=== PATIENT | female | born 1990 | race Caucasian/White ===

== ENCOUNTER → 2018-01-17 | Outpatient (CLI) | payer BC | LOC: WSo 14:29 | PROVIDERS: ATTEND Obstetrics & Gynecology | DX: Z31.82 Encounter for Rh incompatibility status (principal) | CPT/HCPCS: 96372 ==

== ENCOUNTER → 2018-03-20 | Outpatient (CLI) | payer BC ==
[2018-03-20 16:34] LABS: URINE CREATININE FOR RATIO 50 MG/DL (30-125); URINE PROTEIN FOR RATIO ONLY < 6 MG/DL (6-12)
== END ==
LOC: LABNPT 16:09
PROVIDERS: ATTEND Obstetrics & Gynecology
DX: O28.8 Other abnormal findings on antenatal screening of mother (principal)
CPT/HCPCS: 82570; 84156

== ENCOUNTER → 2018-03-25 | Outpatient (CLI) | payer BC ==
[2018-03-25 14:35] LABS: URINE CREATININE FOR RATIO 42 MG/DL (30-125); URINE PROTEIN FOR RATIO ONLY < 6 MG/DL (6-12)
== END ==
LOC: LABNPT 14:15
PROVIDERS: ATTEND Obstetrics & Gynecology
DX: O28.8 Other abnormal findings on antenatal screening of mother (principal)
CPT/HCPCS: 82570; 84156

== ENCOUNTER 2018-03-28 07:00 | Inpatient (IN) | payer BC, OTHER ==
[2018-03-28] VITALS (52 sets, daily range): BP systolic 110–146; BP diastolic 63–93
[~2018-03-28] VITALS: Ht 165.1 cm; Wt 79.8 kg
[2018-03-28] MEDS ORDERED: AMPICILLIN FOR IV USE 2,000 MG in NS (IVPB) 50 ML IV SCH (07:18)
[2018-03-28] MEDS: D5 LR IV SOLUTION 1,000 ML IV SCH ×2 (07:52→16:10)
--- NOTE | 2018-03-28 07:54 | History & Physical ---
History and Physical Date Seen by Provider: Mar 28, 2018 Time Seen by Provider: 07:52 This patient is a 27-year-old G1 white female with an EDC of 10 [phone] placing her now at 38-2/7 weeks' gestation. She presents for induction of labor due to -induced hypertension. Her blood pressures have been in the 150s over 100. Blood pressures throughout her had run in the 100 teens over 60s and 70s. She denies rupture membranes or bleeding. GBS culture done after 35 weeks gestation was positive. Allergies are none Medications are vitamins Past medical social and surgical histories are per the antepartum record HEENT exam is normal Neck is supple no lymphadenopathy no thyromegaly Abdomen is gravid soft nontender nondistended Extremities show no clubbing or cyanosis. There is no Homans sign. Pelvic exam is pending last exam in clinic showed a cervix that was 2+ centimeters dilated 50+ percent effaced and 0 station soft and mid to anterior area this equates to a Gonzalez score of 8 or greater Assessment and plan term at 38+ weeks gestation admitted for induction of labor due to PIH. Cervix is favorable. We anticipate a vaginal delivery. GBS culture was positive and she will be laboring under the cover of ampicillin for GBS prophylaxis Allergies and Home Medications Allergies Coded Allergies: No Known Drug Allergies (Unverified , 03/28/18) Patient Home Medication List Home Medication List Reviewed: Yes ZOHREH VERA MD Mar 28, 2018 07:54
--- NOTE | 2018-03-28 07:55 | OB Bishop Score ---
Gonzalez Score 8 ZOHREH VERA MD Mar 28, 2018 07:55
[2018-03-28 08:10] LABS: BASOPHILS % (AUTO) 0 % (0-10); EOSINOPHILS # (AUTO) 0.1 10^3/uL (0.0-0.3); EOSINOPHILS % (AUTO) 0 % (0-10); HEMATOCRIT 36 % (35-52); HEMOGLOBIN 12.9 G/DL (11.5-16.0); LYMPHOCYTES # (AUTO) 2.3 X 10^3 (1.0-4.0); LYMPHOCYTES % (AUTO) 17 % (12-44); MEAN CORPUSCULAR HEMOGLOBIN 34 PG (25-34); MEAN CORPUSCULAR HGB CONC 36 G/DL (32-36); MEAN CORPUSCULAR VOLUME 96 FL (80-99); MONOCYTES # (AUTO) 1.1 X 10^3 (0.0-1.0); MONOCYTES % (AUTO) 8 % (0-12); NEUTROPHILS % (AUTO) 74 % (42-75); PLATELET COUNT 166 10^3/uL (130-400); RED BLOOD COUNT 3.77 10^6/uL (4.35-5.85); RED CELL DISTRIBUTION WIDTH 12.8 % (10.0-14.5); WHITE BLOOD COUNT 13.4 10^3/uL (4.3-11.0)
[2018-03-28] MEDS ORDERED: OXYTOCIN/NORMAL SALINE 500 ML IV SCH ×2 (08:10→18:40)
[2018-03-28] MEDS: AMPICILLIN FOR IV USE 1,000 MG in NS (IVPB) 50 ML IV SCH ×2 (12:00→15:50)
[2018-03-28] MEDS ORDERED: CATHETER FLUSH 10 ML SYR IV SCH (14:00)
[2018-03-28] MEDS ORDERED: SUFENTA 0.6MCG/ML BUPIVA 0.125 100 ML ONE (14:56)
[2018-03-28] MEDS ORDERED: LACTATED RINGERS 1,000 ML IV SCH (15:52)
[2018-03-28] MEDS ORDERED: diphenhydrAMINE 50 MG/ML INJ (BENADRYL) IV PRN (16:00)
[2018-03-28] MEDS ORDERED: METOCLOPRAMIDE INJ 10 MG/2 ML (REGLAN) IV PRN (16:00)
[2018-03-28] MEDS ORDERED: EPIDURAL (SUFENTA 0.6MCG/ML BUPIVA 0.125%) 100 ML BAG EPI SCH (16:00)
[2018-03-28] MEDS ORDERED: ONDANSETRON 4 MG/2 ML (SDV) Z0FRAN IV PRN (16:00)
[2018-03-28] MEDS ORDERED: NALOXONE 0.4 MG/ML 1 ML (NARCAN) VIAL IV PRN ×2 (16:00)
[2018-03-28] MEDS ORDERED: LIDOCAINE/EPI 2% 1:200,00 (XYLOCAINE) 10 ML VIAL ONE (17:05)
[2018-03-28] MEDS ORDERED: LIDOCAINE/EPI 2% 1:200,00 (XYLOCAINE) 10 ML VIAL INJ ONE (17:40)
[2018-03-28] MEDS ORDERED: ONDANSETRON 4 MG/2 ML (SDV) Z0FRAN IVP PRN (18:45)
[2018-03-28] MEDS ORDERED: TETANUS,DIPTH,PERTUSS P/F (BOOSTRIX) 0.5 ML VIAL IM ONE (18:45)
[2018-03-28] MEDS ORDERED: MEASLES,MUMPS,RUBELLA 1 EA INJ SC ONE (18:45)
[2018-03-28] MEDS ORDERED: oxyCODONE/APAP 5/325MG (PERCOCET 5) TABLET PO PRN (18:45)
[2018-03-28] MEDS ORDERED: BENZOCAINE/MENTHOL (DERMOPLAST) 56 ML CAN TP PRN (18:45)
[2018-03-28] MEDS: KETOROLAC 30 MG/ML VIAL IV SCH (19:04)
[2018-03-28] MEDS: DOCUSATE SODIUM 100 MG (COLACE) CAP PO SCH (20:19)
--- NOTE | 2018-03-28 20:54 | OPERATIVE REPORT ---
DATE OF SERVICE: 03/28/2018 DELIVERY NOTE The patient delivered by term spontaneous vaginal delivery of a viable female with Apgars of 8 and 9 at 1 and 5 minutes respectively, weight of 5 pounds 12 ounces. time of 17:43. The infant delivered over a midline episiotomy that was performed to shorten the second stage of labor secondary to deep decels into the 60s. The was bulb suctioned on delivery of the head and again on completion of delivery. Umbilical cord was doubly clamped when it was a relatively pulseless. The father cut the cord, the baby was passed to mom's abdomen. The placenta delivered spontaneously Ruff. It was a normal 3-vessel cord, but it did have a small accessory lobe that was intact. The cervix, vagina, rectum and perineum were examined and found intact, except for the midline episiotomy, which was repaired with a single suture of 3-0 Vicryl Rapide in the usual manner without difficulty to good reapproximation and good hemostasis. Sponge and needle counts were correct on completion of delivery and the repair. Estimated blood loss was around 250 mL. The patient tolerated the procedure well and recovered in the LDR. The baby remained with the mom. Job ID: [id number] DocumentID: [id number] Dictated Date: 03/28/2018 18:01:46 Clinical Informatics Strategist Date: 03/28/2018 20:53:51 Dictated By: ZOHREH VERA MD
[2018-03-29 00:25] VITALS: BP 118/68
[2018-03-29] MEDS: KETOROLAC 30 MG/ML VIAL IV SCH ×2 (00:33→06:46)
[2018-03-29 04:15] VITALS: BP 117/73
[2018-03-29] MEDS ORDERED: IBUPROFEN 800 MG (MOTRIN) TAB PO ONE ×2 (06:36→11:59)
[2018-03-29] MEDS: IBUPROFEN 800 MG (MOTRIN) TAB PO SCH ×4 (06:45→23:57)
[2018-03-29] MEDS: DOCUSATE SODIUM 100 MG (COLACE) CAP PO SCH ×2 (09:02→20:39)
--- NOTE | 2018-03-29 09:07 | Anesthesia-Regional Post-Op ---
Regional Patient Condition Mental Status: Alert, Oriented x3 Circulation: Same as Pre-Op Headache: Absent Sensation: Full Recovery Motor Block: Absent Post Op Complications Complications None Follow Up Care/Instructions Patient Instructions None needed. Anesthesia/Patient Condition Patient is doing well, no complaints, stable vital signs, no apparent adverse anesthesia problems. No complications reported per nursing. AGUSTIN BARAHONA CRNA Mar 29, 2018 09:07
[2018-03-29 09:13] VITALS: BP 116/70
[2018-03-29] MEDS ORDERED: WITCH HAZEL(TUCKS) 40 EA JAR TOP PRN (09:15)
--- NOTE | 2018-03-29 11:28 | Progress Note-Standard ---
Standard Progress Note Progress Notes/Assess & Plan Date Seen by a Provider: Mar 29, 2018 Time Seen by a Provider: 11:26 Progress/Assessment & Plan This patient is without complaint. She is ambulating, voiding, tolerating oral intake well has good pain control. Vital Signs 03/29/18 09:13 Temp 98.1 Pulse 75 Resp 18 B/P (MAP) 116/70 (85) Pulse Ox 97 O2 Delivery Room Air Signs are stable. Patient is afebrile. Fundus is firm below the umbilicus and nontender. Extremities show no clubbing cyanosis. There is no Homans sign. There is some pretibial pitting edema that is normal. Assessment and plan day number 1 status post term spontaneous vaginal delivery at 38 weeks gestation. Patient doing well and will have routine convalescence care today and discharge home tomorrow ZOHREH VERA MD Mar 29, 2018 11:28 am
[2018-03-29 12:00] VITALS: BP 129/73
[2018-03-29] MEDS ORDERED: IBUP-1780 PO (16:34)
[2018-03-29] MEDS ORDERED: OXYC1TAB87 PO (16:34)
[2018-03-29] MEDS ORDERED: DOCU100C37 PO (16:34)
--- NOTE | 2018-03-29 16:35 | Discharge Instructions ---
Discharge Instructions Discharge Medications New, Converted or Re-Newed RX: RX on Chart Patient Instructions Patient Instructions: As directed Return to The Hospital For: DIRECTED Activity & Diet Discharge Diet: No Restrictions Activity as Tolerated: No Orders-Post D/C & Referrals Follow Up Appt: Call to make follow up appt. for patient in 4 weeks. Activity Per routine post vaginal delivery instructions. Diet as tolerated Patient may shower or tub bathe as desired. ZOHREH VERA MD Mar 29, 2018 4:35 pm
[2018-03-29 17:00] VITALS: BP 123/79
[2018-03-29 20:00] VITALS: BP 122/78
[2018-03-30 02:00] VITALS: BP 115/75
[2018-03-30] MEDS: IBUPROFEN 800 MG (MOTRIN) TAB PO SCH ×2 (05:29→12:21)
--- NOTE | 2018-03-30 07:28 | Progress Note-Standard ---
Standard Progress Note Progress Notes/Assess & Plan Date Seen by a Provider: Mar 30, 2018 Time Seen by a Provider: 07:26 Progress/Assessment & Plan This patient is without complaint. She is ambulating, voiding, tolerating oral intake well has good pain control. Vital Signs 03/29/18 09:13 Temp 98.1 Pulse 75 Resp 18 B/P (MAP) 116/70 (85) Pulse Ox 97 O2 Delivery Room Air Signs are stable. Patient is afebrile. Fundus is firm below the umbilicus and nontender. Extremities show no clubbing cyanosis. There is no Homans sign. There is some pretibial pitting edema that is normal. Assessment and plan day number 1 status post term spontaneous vaginal delivery at 38 weeks gestation. Patient doing well and will have routine convalescence care today and discharge home tomorrow March 30, 2018 Patient is without complaint. She is ambulating, voiding, tolerating oral intake well, has good pain control and is requesting discharge home. Vital signs are stable. Patient is afebrile. Vital Signs 03/30/18 02:00 Temp 97.9 Pulse 82 Resp 18 B/P (MAP) 115/75 (88) Pulse Ox 98 O2 Delivery Room Air Fundus is firm below the umbilicus and nontender. Extremities show no clubbing or cyanosis. There is no Homans sign. Assessment and plan day number 2 status post term spontaneous vaginal delivery doing well. Plan is for discharge home with follow-up in clinic. Final Diagnosis Term spontaneous vaginal delivery at 38 weeks gestation ZOHREH VERA MD Mar 30, 2018 7:28 am
[2018-03-30 08:30] VITALS: BP 127/73
[2018-03-30] MEDS: DOCUSATE SODIUM 100 MG (COLACE) CAP PO SCH (08:37)
[2018-03-30 12:40] VITALS: BP 130/80
[2018-03-30 16:20] VITALS: BP 130/80
== END 2018-03-30 16:20 | disposition home or self-care (01) | DRG 807 ==
LOC: LDRP 07:00
PROVIDERS: ADMIT Obstetrics & Gynecology; ATTEND Obstetrics & Gynecology
PROC: 10E0XZZ Delivery of Products of Conception, External Approach (ICD-10-PCS; principal; 2018-03-28)
PROC: 0W8NXZZ Division of Female Perineum, External Approach (ICD-10-PCS; 2018-03-28)
PROC: 3E033VJ Introduction of Other Hormone into Peripheral Vein, Percutaneous Approach (ICD-10-PCS; 2018-03-28)
DX: O13.4 Gestational [pregnancy-induced] hypertension without significant proteinuria, complicating childbirth (principal); O99.824 Streptococcus B carrier state complicating childbirth; O76 Abnormality in fetal heart rate and rhythm complicating labor and delivery; Z37.0 Single live birth; Z3A.38 38 weeks gestation of pregnancy
CPT/HCPCS: 36415; 85025; 86850; 86900; 86901